=== PATIENT | female | born 1935 | race Two or more races ===

== ENCOUNTER → 2018-03-31 | Outpatient (REF) | payer MEDICARE, OTHER ==
[~2018-03-31] MED LIST: ASPIRIN EC81 MG; CALCIUM/D250 MG; CRESTOR10 MG; JANUVIA50 MG; LISINOPRIL10 MG; LOSARTAN POT100 MG; METOPROL TAR100 MG; OMEGA-3 FISH1000 MG; PRAVACHOL20 MG; TRAMADOL HCL50 MG
[2018-03-31 09:58] LABS: HEMATOCRIT 41.4 % (37.0-47.0); HEMOGLOBIN 13.5 g/dl (12.0-16.0); MEAN CELL VOLUME 92.6 fL CALC (80.0-100.0); MEAN CORPUSCULAR HGB 30.2 pG CALC (26.0-32.0); MEAN CORPUSCULAR HGB CONC 32.6 g/L CALC (32.0-36.0); RED BLOOD COUNT 4.47 mill/uL (4.20-5.60); RED CELL DISTRI WIDTH 15.9 % (11.5-15.5)
[2018-03-31 10:12] LABS: URINE BILIRUBIN - DIPSTICK NEGATIVE (NEGATIVE); URINE BLOOD DIPSTICK NEGATIVE (NEGATIVE); URINE CLARITY CLEAR; URINE COLOR YELLOW; URINE GLUCOSE - DIPSTICK NEGATIVE (NEGATIVE); URINE KETONE NEGATIVE (NEGATIVE); URINE LEUK ESTERASE NEGATIVE (NEGATIVE); URINE NITRITE - DIPSTICK NEGATIVE (Negative); URINE PH 5.5 (4.5-8.0); URINE PROTEIN - DIPSTICK NEGATIVE (NEG-TRACE); URINE UROBILINOGEN - DIPSTICK 0.2 E.U./dL (0.2)
== END | disposition home or self-care (01) ==
LOC: LAB 09:16
PROVIDERS: ATTEND Nurse Practitioner Adult Health
DX: E11.21 Type 2 diabetes mellitus with diabetic nephropathy (principal); E78.2 Mixed hyperlipidemia; I10 Essential (primary) hypertension

== ENCOUNTER 2019-06-17 13:59 | Emergency (ER) | payer MEDICARE, OTHER ==
[~2019-06-17 13:59] MED LIST changes: +ALLOPURINOL100 MG PO; +COQ-10100 MG PO; +GLIMEPIRIDE2 MG PO; +OMEPRAZOLE20 M2 PO; +VITAMIN D1000 UNIT PO
== END 2019-06-17 14:50 | disposition left against medical advice (07) ==
LOC: ED 13:59 → LWOBS 14:50
DX: Z53.21 Procedure and treatment not carried out due to patient leaving prior to being seen by health care provider (principal)